=== PATIENT | male | born 1980 | race Caucasian/White ===

== ENCOUNTER 2024-01-23 09:22 | Outpatient (CLI) | payer BC, SELFPAY | END 2024-01-23 09:23 | disposition home or self-care (01) | LOC: NFLDREF 02-01 12:32 | PROVIDERS: PCP Family Medicine; Referring Provider Family Medicine; Visit Provider Family Medicine | DX: E78.00 Pure hypercholesterolemia, unspecified (principal); R79.89 Other specified abnormal findings of blood chemistry; I10 Essential (primary) hypertension; R53.83 Other fatigue | CPT/HCPCS: 80053; 80061; 84270; 84402; 84403; 84443; G0103 ==

== ENCOUNTER 2024-01-25 06:16 | Day surgery (SDC) | payer BC, SELFPAY ==
[2024-01-25] VITALS (19 sets, daily range): BP systolic 119–151; BP diastolic 78–100; PULSE 60–82; RESP 15–19; TEMP 36.6–36.9; O2SAT 91–98; BMI 28.6
[2024-01-25] MEDS: LACTATED RINGERS 1000 ML 1,000 ML 100 ML IV (06:15)
[2024-01-25] MEDS: SODIUM CHLORIDE 0.9 % (FLUSH) 10 ML SYRINGE IVF (06:15)
--- NOTE | 2024-01-25 06:46 | SUR.PREOP ---
Patient already removed hair prior to arrival at surgical site.
[2024-01-25] MEDS: SCOPOLAMINE 1 MG/3 DAY PATCH 1 PATCH TRANSDERMA (07:35)
[2024-01-25] MEDS: CEFAZOLIN 2 GM INJ IVP (07:51)
[2024-01-25] MEDS: BUPIVACAINE 0.25% 30 ML INJECTION (08:29)
--- NOTE | 2024-01-25 09:14 | W.ANESCHARGE ---
Anesthesia Charges Start Date/Time Anesthesia Start Date: 01/25/24 Anesthesia Start Time: 07:39 Stop Date/Time Anesthesia Stop Date: 01/25/24 Anesthesia Stop Time: 09:08
--- NOTE | 2024-01-25 09:31 | PM.GSPRC ---
Operative Note Date of procedure: 01/25/24 Pre-op diagnosis: Right inguinal hernia Post-op diagnosis: Same Type of Procedure: Laparoscopic right inguinal hernia repair with mesh Indications: The patient is a 43-year-old male who noticed a right inguinal hernia several months ago. This has been reducible, however is very active and has caused him increasing discomfort and has interfered with his activity. We discussed options and he elected to proceed with repair. Procedure Description: After discussing the risks and benefits of the procedure, the patient signed informed consent.? The operative site was marked and the patient was brought to the operating room and placed on the operating table in supine position.? Care was taken to pad the patient's pressure points.?? The patient was then intubated by anesthesia.?? The operative site was then prepped and draped in the usual sterile fashion.? A time-out was then performed. A curvilinear incision was made below the umbilicus. Dissection was carried down to subcutaneous tissue until the anterior rectus fascia was encountered. This was incised off the midline. The rectus muscle fibers were then retracted exposing the posterior fascia. A port with a dissecting balloon was then introduced into the pre-preperitoneal space. This was inflated under direct vision. The balloon was deflated, removed, and a 10 mm working port was placed. The space was insufflated and a 10 mm 30-degree scope was then advanced into the space. Two 5 mm ports were placed in the midline under direct vision. Dissection began on the right side. Avi's ligament and the pubic bone were exposed medially. Following this, dissection was carried out laterally. An indirect defect was noted. The sac was dissected free from the cord structures using a combination of sharp and blunt dissection. A cord lipoma was also reduced. Once this was dissected free, it was devascularized and so was removed from the abdomen. Once the sac was completely reduced, a piece of Bard 3DMax mesh for the appropriate side was placed into the abdomen. This was positioned with the marker pointed medially. A Tacker was used to attach the mesh medially at Avi's ligament and 1 tack laterally with care to avoid the epigastric vessels and stay above the inguinal ligament. The patient had had some oozing initially from what appeared to be a branch of the epigastric vessels from the balloon dissector, however there was no ongoing bleeding during the case. This area was cauterized. I deflated the space maker balloon Dayana was placed in the preperitoneal space. Once this was completed the sac was placed on top of the mesh and the preperitoneal space desufflated under direct vision to ensure the mesh laid flat. 10 mL of 0.5% Marcaine were instilled into the preperitoneal space through a port. The ports were removed. The patient was noted to have a small amount of pneumoperitoneum that was noticeable. I incised the posterior rectus sheath and peritoneum to relieved the pneumoperitoneum. I then close the posterior defect with Vicryl suture. The fascia from the infraumbilical port was closed with 0 Vicryl. The skin incisions were closed with absorbable subcuticular suture. Sterile dressings were then applied. The scrotum was examined to ensure that both testicles were down. Instrument sponge and needle counts were correct at the end of the case. ? The patient was then woken and transported to the recovery area in stable condition. ? The patient tolerated the procedure well. Findings: Indirect right inguinal hernia with cord lipoma Implants: Bard 3DMax mesh Anesthesia: GETA Surgeon: Arianna Spencer MD Estimated blood loss (mL): 10 Condition: stable Disposition: PACU
--- NOTE | 2024-01-25 09:54 | SUR.PHASEI ---
Patient meets Anesthesia discharge criteria for PACU
--- NOTE | 2024-01-25 10:38 | W.ANESCHARGE ---
Anesthesia Charges Start Date/Time Anesthesia Start Date: 01/25/24 Anesthesia Start Time: 07:39 Stop Date/Time Anesthesia Stop Date: 01/25/24 Anesthesia Stop Time: 09:08
[2024-01-25] MEDS: ACETAMINOPHEN 325 MG TABLET 650 MG PO (12:07)
== END 2024-01-25 12:25 | disposition home or self-care (01) ==
PROVIDERS: PCP Family Medicine; Visit Provider Surgery
PROC: (CPT 49650; principal; 2024-01-25 07:30)
DX: K40.90 Unilateral inguinal hernia, without obstruction or gangrene, not specified as recurrent (principal)
CPT/HCPCS: 49650; 00830; A9270; C1781; J0330; J0665; J0690; J1100; J1200; J1630; J2250; J2405; J2704; J2710; J3010; J3490; J7120

== ENCOUNTER 2025-05-22 08:21 | Outpatient (CLI) | payer BC, SELFPAY ==
--- NOTE | 2025-05-22 10:36 | P.ANES_ITS ---
Anesthesia Charges Start Date/Time Anesthesia Start Date: 05/22/25 Anesthesia Start Time: 10:00 Stop Date/Time Anesthesia Stop Date: 05/22/25 Anesthesia Stop Time: 10:35 Coding CPT Codes CPT Codes: ROSI LWR INTST NDIL NOS - [id number] ([id number]) P1 - NORMAL HEALTHY PATIENT, QK - SEGMENT ASSEMBLER 2-4 CNCRNT ANES PROC, QX - STRETCHER LEVELER OPERATOR SVC W/ MED DIRECTION
--- NOTE | 2025-05-22 10:36 | W.ANESCHARGE ---
Anesthesia Charges Start Date/Time Anesthesia Start Date: 05/22/25 Anesthesia Start Time: 10:00 Stop Date/Time Anesthesia Stop Date: 05/22/25 Anesthesia Stop Time: 10:35 Coding CPT Codes CPT Codes: ROSI LWR INTST NDMA NOS - [id number] ([id number]) P1 - NORMAL HEALTHY PATIENT, QK - ASSEMBLER METAL FURNITURE 2-4 CNCRNT ANES PROC, QX - PEER EDUCATOR SVC W/ MED DIRECTION
--- NOTE | 2025-05-22 11:16 | P.ANES_ITS ---
Anesthesia Charges Start Date/Time Anesthesia Start Date: 05/22/25 Anesthesia Start Time: 10:00 Stop Date/Time Anesthesia Stop Date: 05/22/25 Anesthesia Stop Time: 10:35 Coding CPT Codes CPT Codes: ROSI LWR INTST NDWV NOS - [id number] ([id number]) P1 - NORMAL HEALTHY PATIENT, QX - PLASTIC PRESS OPERATOR SVRonal W/ MED DIRECTION, QK - VIDEO RECORDER MECHANIC 2-4 CNCRNT ROSI PROC
--- NOTE | 2025-05-22 11:16 | W.ANESCHARGE ---
Anesthesia Charges Start Date/Time Anesthesia Start Date: 05/22/25 Anesthesia Start Time: 10:00 Stop Date/Time Anesthesia Stop Date: 05/22/25 Anesthesia Stop Time: 10:35 Coding CPT Codes CPT Codes: ROSI LWR INTST NDHI NOS - 86754 ([id number]) P1 - NORMAL HEALTHY PATIENT, QX - MARKET RISK SPECIALIST SVRonal W/ MED DIRECTION, QK - SHEARER PRINTED CIRCUIT BOARDS 2-4 CNCRNT ROSI PROC
== END 2025-05-22 08:22 | disposition home or self-care (01) ==
LOC: OP CLINIC 08:21
PROVIDERS: PCP Family Medicine; Visit Provider Surgery
DX: Z12.11 Encounter for screening for malignant neoplasm of colon (principal); D12.2 Benign neoplasm of ascending colon; D12.3 Benign neoplasm of transverse colon; D12.8 Benign neoplasm of rectum
CPT/HCPCS: 00811; 00812; 45385; 88305; J2704